=== PATIENT | male | born 1935 | race Hispanic/Latino ===

== ENCOUNTER 2023-08-06 07:34 | Emergency (ER) | payer OTHER, MEDICAID ==
[2023-08-06] MEDS ORDERED: Morphine 4 MG/ML VIAL ONE (08:10)
[2023-08-06] MEDS ORDERED: Ondansetron PF 4 MG/2 ML Vial ONE (08:10)
[2023-08-06] MEDS ORDERED: VANCOMYCIN 1.75 GM/350 ML BAG 1.75 GM in Premix 1 BAG IVPB SCH (08:15)
[2023-08-06 08:21] LABS: #Basophils 0.03 10x3/uL (0.0-0.2); #Eosinphils 0.26 10x3/uL (0.0-0.5); #Monocytes 0.79 10x3/uL (0.0-1.1); #Neutrophils 7.25 10x3/uL (1.5-8.4); %Basophils 0.3 % (0.0-2.0); %Eosinophils 2.7 % (0.0-6.0); %Lymphocytes 12.5 % (18.0-47.0); %Monocytes 8.3 % (0.0-10.0); %Neutrophils 75.8 % (40.0-75.0); Hematocrit 26.2 % (38.8-50.0); Hemoglobin 8.8 g/dL (13.5-17.5); Mean Corpuscular HGB CONC 33.6 g/dL (32.0-36.0); Mean Corpuscular Volume 86.5 fL (81.2-95.1); Mean Platelet Volume 9.1 fL (7.4-10.4); Platelet Count 425 10x3/uL (150-450); RBC Distribution Width 13.7 % (11.5-14.5); Red Blood Cell (RBC) Count 3.03 10x6/uL (4.32-5.72); White Blood Cell (WBC) Count 9.6 10x3/uL (3.5-10.5)
[2023-08-06 08:31] LABS: INR-International Normal Ratio 1.1; PTT 30.6 sec (22.0-33.0); Prothrombin Time 11.4 sec (9.5-12.1)
[2023-08-06 08:35] LABS: ALT (SGPT) 17 U/L (8-55); AST (SGOT) 27 U/L (5-34); Albumin 3.2 g/dL (3.4-4.8); Alkaline Phosphatase 111 U/L (40-110); Anion Gap 17 mmol/L (10-20); BUN (Urea Nitrogen) 29 mg/dL (8.4-25.7); Bilirubin, Total 0.4 mg/dL (0.2-1.2); Calc. Creatinine Clearance 0 mL/min (70-130); Calcium 9.6 mg/dL (7.8-10.44); Carbon Dioxide 24 mmol/L (23-31); Chloride 101 mmol/L (98-107); Estimated GFR 56; Globulin 4.2 g/dL (2.4-3.5); Glucose 129 mg/dL (83-110); Potassium 3.9 mmol/L (3.5-5.1); Protein, Total 7.4 g/dL (5.8-8.1); Sodium 138 mmol/L (136-145)
[2023-08-06] MEDS ORDERED: Piperacillin/Tazobactam 4.5 GM VIAL ONE (08:51)
== END 2023-08-06 10:26 | disposition short-term general hospital (02) ==
LOC: CSHERS 07:34
DX: L03.032 Cellulitis of left toe (principal); I73.9 Peripheral vascular disease, unspecified; I10 Essential (primary) hypertension
CPT/HCPCS: 71045; 80053; 83605; 85025; 85610; 85730; 86140; 87040; 93005; 93923; J2270; J2405; J2543; J3370; 36415; 96365; 96375